=== PATIENT | male | born 1990 | race Caucasian/White ===

== ENCOUNTER 2016-11-12 16:11 | Emergency (ER) | payer SELFPAY ==
[2016-11-12 16:15] VITALS: TEMP 100.6
[2016-11-12 16:34] LABS: HEMATOCRIT 44.2 % (42.0-52.0); HEMOGLOBIN 15.1 g/dl (13.5-18.0); MEAN CELL VOLUME 87 fl (80.0-100.0); MEAN CORPUSCULAR HEMOGLOBIN 30 pg (27.0-31.0); MEAN CORPUSCULAR HGB CONC 34 g/dl (33.0-37.0); MEAN PLATELET VOLUME 9.6 fl (7.4-10.4); PLATELET COUNT 276 K/mm3 (130-400); RED BLOOD COUNT 5.09 M/mm3 (4.20-5.60); REDCELL DISTRIBUTION WIDTH-CV 12.2 % (11.5-14.5); WHITE BLOOD COUNT 7.1 K/mm3 (4.8-10.8)
[2016-11-12 16:36] LABS: INR 1.1 (0.8-3.0); PROTHROMBIN TIME 12.1 SECONDS (9.7-12.8)
[2016-11-12 16:40] LABS: ADD PATHOLOGY DIFF REVIEW NO
[2016-11-12 16:43] LABS: ALANINE AMINOTRANSFERASE 66 U/L (21-72); ALKALINE PHOSPHATASE 58 U/L (50-136); ANION GAP 13 mmol/L (7-16); BILIRUBIN,TOTAL 0.6 mg/dL (0.0-1.0); BLOOD UREA NITROGEN 13 mg/dL (9-20); CARBON DIOXIDE 25 mmol/L (22-30); CHLORIDE 103 mmol/L (98-107); CREATININE, serum 1.37 mg/dL (0.66-1.25); GLUCOSE 111 mg/dL (74-106); POTASSIUM 3.6 mmol/L (3.4-5.0); SODIUM 141 mmol/L (137-145); TOTAL PROTEIN 7.1 gm/dL (6.4-8.2)
[2016-11-12 16:46] LABS: BAND 14 % (0-10); EOSINOPHIL 2 % (0-4); NEUTROPHILS 62 % (42.0-75.2); TOTAL CELLS COUNTED 100
[2016-11-12 16:47] LABS: PLATELET ESTIMATE NORMAL (NORMAL); SALICYLATE < 1.0 mg/dL
[2016-11-12 16:54] LABS: AMPHETAMINE URINE NEGATIVE; BARBITURATES URINE NEGATIVE; BENZODIAZEPINES URINE NEGATIVE; BUPRENORPHINE URINE NEGATIVE; METHADONE URINE NEGATIVE; OPIATES URINE NEGATIVE; OXYCODONE URINE NEGATIVE; PHENCYCLIDINE URINE POSITIVE; PROPOXYPHENE URINE NEGATIVE; THC CANNABINOIDS URINE POSITIVE
[2016-11-12 16:56] LABS: TROPONIN-I 0.033 ng/mL (0.000-0.034)
[2016-11-12 22:20] VITALS: BP 119/79; PULSE 115
== END 2016-11-12 22:20 ==
LOC: COL.ER 16:11 → EDBD 16:15 → COL.ER 16:15
PROVIDERS: Family Medicine
DX: F16.120 Hallucinogen abuse with intoxication, uncomplicated (principal)
CPT/HCPCS: J2250; J7030